=== PATIENT | male | born 1960 | race Caucasian/White ===

== ENCOUNTER → 2019-03-11 | Outpatient (CLI) | payer OTHER ==
[2019-03-11 12:58] LABS: BASO % 0.5 % (0.0-1.0); EOS # 0.2 10^3/uL (0.0-0.50); EOS % 1.7 % (0.0-3.0); HEMATOCRIT 44.3 % (42.0-52.0); LYMPH # 3.3 10^3/uL (1.5-4.5); LYMPH % 36.9 % (24.0-44.0); MEAN CORPUSCULAR HEMOGLOBIN 32.3 pg (27.0-33.0); MEAN CORPUSCULAR HGB CONC 33.9 g/dl (32.0-36.5); MEAN CORPUSCULAR VOLUME 95.5 fl (80.0-96.0); MONO # 0.5 10^3/uL (0.0-0.8); NEUTROPHILS # 4.8 10^3/uL (1.8-7.7); NEUTROPHILS % 54.7 % (36.0-66.0); PLATELET COUNT, AUTOMATED 284 10^3/uL (150-450); RED BLOOD COUNT 4.64 10^6/uL (4.30-6.10); WHITE BLOOD COUNT 8.8 10^3/uL (4.0-10.0)
[2019-03-11 13:06] LABS: ALBUMIN 3.7 GM/DL (3.2-5.2); ALT/SGPT 34 U/L (12-78); AMYLASE 28 U/L (25-115); BILIRUBIN,TOTAL 0.2 MG/DL (0.2-1.0); BLOOD UREA NITROGEN 12 MG/DL (7-18); CALCIUM LEVEL 8.9 MG/DL (8.8-10.2); CARBON DIOXIDE LEVEL 31 MEQ/L (21-32); CHLORIDE LEVEL 101 MEQ/L (98-107); CREATININE FOR GFR 0.88 MG/DL (0.70-1.30); GLOMERULAR FILTRATION RATE > 60.0 (>49); GLUCOSE, FASTING 101 MG/DL (70-100); LIPASE 89 U/L (73-393); POTASSIUM SERUM 4.4 MEQ/L (3.5-5.1); SODIUM LEVEL 137 MEQ/L (136-145); TOTAL PROTEIN 7.3 GM/DL (6.4-8.2)
== END ==
LOC: M WUC 09:17
PROVIDERS: ATTEND Physician Assistant
DX: R10.30 Lower abdominal pain, unspecified (principal)

== ENCOUNTER → 2020-01-07 | Outpatient (CLI) | payer OTHER | LOC: M LABSMTC 10:02 | PROVIDERS: ATTEND Family Medicine | DX: Z11.59 Encounter for screening for other viral diseases (principal); Z20.828 Contact with and (suspected) exposure to other viral communicable diseases ==

== ENCOUNTER → 2021-03-21 | Outpatient (CLI) | payer OTHER ==
--- NOTE | 2021-03-21 09:34 | REP ---
INDICATION: FEVER AND COUGH COMPARISON: None. TECHNIQUE: PA and lateral. FINDINGS: The mediastinum and cardiac silhouette are normal. The lung ryan demonstrate chronic appearing interstitial changes without acute consolidation, effusion, or pneumothorax. The skeletal structures are intact and normal. IMPRESSION: No focal consolidation, effusion, or cardiopulmonary process appreciated. <Electronically signed by Geraldo Guzmán > 03/21/21 0816
== END ==
LOC: M WUC 09:11
PROVIDERS: ATTEND Physician Assistant
DX: R05 Cough (principal); R50.9 Fever, unspecified

== ENCOUNTER → 2021-08-29 | Outpatient (CLI) | payer OTHER ==
--- NOTE | 2021-08-29 09:11 | PFTRPT ---
Site: [facility], [address] [place] [address], [id number] ID: [id number] Name: JOSÉ MIGUEL DE LEON Visit Date: 08/29/2021 Second ID: [id number] Referring Doctor: Tyler Recio D.O. Reviewing Doctor: Joel Truong MD Vehicle Delivery Worker: Poli PHILLIPS RRT Age: 61 : 1960 Sex: Male Race: Height: 74.00 Inches Weight: 300.00 Lbs BSA: 2.58 Order IDs: [id number] Requested Test(s): <RESP-PFT.PFT B/A> Diagnosis: SOB test meet the ATS standards for acceptability and repeatability. Pt was given four puffs of albuterol for post bronchodilator. Review Status: Not Reviewed Pre-Bronch Post-Bronch Pred Actual %Pred Actual %Chng SPIROMETRY FVC (L) 5.38 4.05 75 4.10 1 FEV1 (L) 4.04 3.32 82 3.54 6 FEV1/FVC (%) 75 82 109 86 5 FEF 25% (L/sec) 8.87 7.41 83 7.89 6 FEF 50% (L/sec) 5.22 3.78 72 5.63 49 FEF 75% (L/sec) 1.69 1.56 92 1.90 21 FEF 25-75% (L/sec) 3.23 3.24 100 4.52 39 FEF Max (L/sec) 9.95 7.81 78 8.63 10 FIVC (L) 4.12 4.11 FIF 50% (L/sec) 4.65 5.83 125 4.54 -22 FIF Max (L/sec) 5.83 4.66 -20 MVV (L/min) 151 145 96 Expiratory Time (sec) 6.63 6.95 4 Back Extrap Vol (L) 0.13 0.13 -3 Time To FEFmax (sec) 0.105 0.079 -24 LUNG VOLUMES SVC (L) 5.29 4.32 81 IC (L) 3.66 3.20 87 ERV (L) 1.63 1.12 69 TGV (L) 4.15 3.22 77 RV (Pleth) (L) 2.52 2.10 83 TLC (Pleth) (L) 7.81 6.42 82 RV/TLC (Pleth) (%) 33 33 98 DIFFUSION DLCOunc (ml/min/mmHg) 29.51 22.63 76 DL/VA (ml/min/mmHg/L) 3.78 3.89 102 VA (L) 7.81 5.81 74 BHT (sec) 10.09 IVC (L) 4.06 TLC (SB) (L) 5.96 AIRWAYS RESISTANCE Raw (cmH2O/L/s) 1.45 0.91 62 Gaw (L/s/cmH2O) 1.03 1.12 108 sRaw (cmH2O*s) 4.76 2.99 62 sGaw (1/cmH2O*s) 0.20 0.34 168
== END ==
LOC: M CARPUL 08:08
PROVIDERS: ATTEND Emergency Medicine
DX: J96.01 Acute respiratory failure with hypoxia (principal)

== ENCOUNTER 2022-12-12 09:50 | Emergency (ER) | payer OTHER ==
[~2022-12-12] VITALS: Ht 188 cm; Wt 122.0 kg
[2022-12-12] MEDS ORDERED: VITAD400CA PO (10:13)
[2022-12-12] MEDS ORDERED: ROSU20TA5 PO (10:13)
[2022-12-12] MEDS ORDERED: OMEP-173 PO (10:13)
[2022-12-12] MEDS ORDERED: FLUO20CA22 PO (10:13)
[2022-12-12] MEDS ORDERED: ARIP1TAB6 PO (10:13)
[2022-12-12 12:20] LABS: BASO # 0.1 10^3/uL (0.0-0.2); BASO % 0.6 % (0.0-1.0); EOS # 0.2 10^3/uL (0.0-0.5); HEMATOCRIT 47.9 % (42.0-52.0); HEMOGLOBIN 16.1 g/dl (13.5-17.5); LYMPH # 3.3 10^3/uL (1.5-5.0); LYMPH % 30.1 % (24.0-44.0); MEAN CORPUSCULAR HEMOGLOBIN 31.8 pg (27.0-33.0); MEAN CORPUSCULAR HGB CONC 33.6 g/dl (32.0-36.5); MEAN CORPUSCULAR VOLUME 94.5 fl (80.0-96.0); MONO # 0.7 10^3/uL (0.0-0.8); MONO % 6.1 % (2.0-8.0); NEUTROPHILS # 6.6 10^3/uL (1.5-8.5); PLATELET COUNT, AUTOMATED 267 10^3/uL (150-450); RED BLOOD COUNT 5.07 10^6/uL (4.30-6.10); WHITE BLOOD COUNT 10.8 10^3/uL (4.0-10.0)
[2022-12-12] MEDS ORDERED: ISOVUE-370 76% 100ML VIAL As Ordered ONE (12:35)
[2022-12-12 12:39] LABS: CK-MB VALUE MASS 4.1 NG/ML (<3.6)
[2022-12-12 16:59] VITALS: BP 157/74
== END 2022-12-12 17:07 | disposition home or self-care (01) ==
LOC: M ED 09:50
DX: M62.81 Muscle weakness (generalized) (principal); F43.10 Post-traumatic stress disorder, unspecified; Z86.19 Personal history of other infectious and parasitic diseases; Z87.891 Personal history of nicotine dependence
CPT/HCPCS: 70450; 70496; 70498; 70544; 70551; 71045; 80047; 82550; 82553; 84484; 85025; 85730; 93005; 93041; 94760; 99285; Q9967